=== PATIENT | male | born 1955 | race Caucasian/White ===

== ENCOUNTER 2024-06-26 14:45 | Inpatient (IN) | payer MEDICARE ==
[~2024-06-26] VITALS: Ht 190.5 cm; Wt 104.5 kg
[2024-06-26 20:00] VITALS: BP 135/80; PULSE 64; RESP 20; TEMP 97.5; O2SAT 99
[2024-06-26] MEDS ORDERED: AMLODIPINE BESY10 MG PO (20:00)
[2024-06-26] MEDS ORDERED: DIOVAN160 MG PO (20:00)
[2024-06-26] MEDS ORDERED: ATORVASTATIN CA10 MG PO (20:00)
[2024-06-26] MEDS ORDERED: ACETAMINOPHEN 325 MG TAB PO PRN (20:15)
[2024-06-26 20:59] LABS: BASOPHILS # (AUTO) 0.1 (0.0-0.1); BASOPHILS % 0.7 % (0.0-1.0); EOSINOPHILS # (AUTO) 0.2 (0.0-0.4); EOSINOPHILS % 1.8 % (0.0-6.0); HEMATOCRIT 39.8 % (38.2-49.6); HEMOGLOBIN 13.7 g/dL (14.0-18.0); LYMPHOCYTES % 36.6 % (18.0-39.1); MEAN CORPUSCULAR HEMOGLOBIN 30.4 pg (28-32); MEAN CORPUSCULAR HGB CONC 34.4 g/dL (31-35); MEAN CORPUSCULAR VOLUME 88.2 fL (81-99); MONOCYTES # (AUTO) 0.7 (0.2-0.8); MONOCYTES % 8.3 % (4.4-11.3); NEUTROPHILS # (AUTO) 4.3 (2.1-6.9); NEUTROPHILS % 52.2 % (38.7-80.0); PLATELET COUNT 192 x10e3/uL (140-360); RED BLOOD COUNT 4.51 x10e6/uL (4.3-5.7); RED CELL DISTRIBUTION WIDTH 12.1 % (11.7-14.4); WHITE BLOOD COUNT 8.15 x10e3/uL (4.8-10.8)
[2024-06-26 21:00] VITALS: BP 135/80; PULSE 64; RESP 20; TEMP 97.5; O2SAT 99
[2024-06-26 21:18] LABS: ALBUMIN 3.9 g/dL (3.5-5.0); ALBUMIN/GLOBULIN RATIO 1.3 (0.8-2.0); ANION GAP 13.9 mmol/L (8-16); BILIRUBIN,TOTAL 0.5 mg/dL (0.2-1.2); CALCIUM 9.5 mg/dL (8.4-10.2); CREATININE, SERUM 1.12 mg/dL (0.72-1.25); POTASSIUM 3.9 mmol/L (3.5-5.1)
[2024-06-26] MEDS: ATORVASTATIN 10 MG TAB PO SCH (21:34)
[2024-06-26] MEDS: AMLODIPINE BESYLATE 10 MG TAB PO SCH (21:46)
[2024-06-26] MEDS: VALSARTAN 160 MG TAB PO SCH (21:47)
[2024-06-26] MEDS: CEFTRIAXONE 2 GM in SODIUM CHLORIDE 0.9% 100 ML IV SCH (21:47)
[2024-06-26] MEDS: SODIUM CHLORIDE 0.9% 250ML 250 ML ONE (21:53)
[2024-06-26] MEDS: Vancomycin IV 1 GM in SODIUM CHLORIDE 0.9% 250ML 250 ML IV SCH (23:08)
[2024-06-26 23:37] VITALS: BP 144/86; PULSE 69; RESP 18; TEMP 97.6; O2SAT 99
[2024-06-27] VITALS (7 sets, daily range): BP systolic 142–150; BP diastolic 78–92; PULSE 67–75; RESP 18; TEMP 97.5–98.4; O2SAT 97–100
[2024-06-27] MEDS ORDERED: ASPIRIN81 MG PO (00:20)
[2024-06-27] MEDS ORDERED: SODIUM CHLORIDE 0.9% 100 ML ONE (07:57)
[2024-06-27] MEDS: MUPIROCIN 2% OINT 22 GM TUBE TOP SCH (17:00)
[2024-06-27] MEDS: ASPIRIN 81 MG CHEW TAB PO SCH (20:08)
[2024-06-27] MEDS: INSULIN LISPRO 100 UNIT/1 ML 3ML VIAL SQ SCH (20:44)
[2024-06-28] VITALS (8 sets, daily range): BP systolic 128–155; BP diastolic 81–86; PULSE 68–76; RESP 17–20; TEMP 97.7–98.5; O2SAT 96–99
[2024-06-28] MEDS: MUPIROCIN 2% OINT 22 GM TUBE TOP SCH (21:51)
[2024-06-29] VITALS (8 sets, daily range): BP systolic 142–151; BP diastolic 76–85; PULSE 69–82; RESP 17–20; TEMP 97.4–98.4; O2SAT 95–100
[2024-06-29] MEDS: MUPIROCIN 2% OINT 22 GM TUBE TOP SCH (21:55)
[2024-06-30] VITALS (8 sets, daily range): BP systolic 119–150; BP diastolic 73–85; PULSE 74–89; RESP 18–20; TEMP 97.6–98.8; O2SAT 97–100
[2024-06-30] MEDS ORDERED: MUPIROCIN 2% OINT 22 GM TUBE TOP SCH (09:00)
[2024-07-01] VITALS: BP 119/90; PULSE 75; RESP 18; TEMP 97.7; O2SAT 97
[2024-07-01 05:41] VITALS: BP 129/76; PULSE 75; RESP 18; TEMP 97.7; O2SAT 97
[2024-07-01 07:06] LABS: BASOPHILS # (AUTO) 0.1 (0.0-0.1); EOSINOPHILS # (AUTO) 0.2 (0.0-0.4); EOSINOPHILS % 3.3 % (0.0-6.0); HEMATOCRIT 44.3 % (38.2-49.6); HEMOGLOBIN 14.7 g/dL (14.0-18.0); LYMPHOCYTES % 27.6 % (18.0-39.1); MEAN CORPUSCULAR HEMOGLOBIN 29.9 pg (28-32); MEAN CORPUSCULAR HGB CONC 33.2 g/dL (31-35); MEAN CORPUSCULAR VOLUME 90.2 fL (81-99); MONOCYTES # (AUTO) 0.7 (0.2-0.8); MONOCYTES % 9.6 % (4.4-11.3); NEUTROPHILS # (AUTO) 4.1 (2.1-6.9); NEUTROPHILS % 58.2 % (38.7-80.0); PLATELET COUNT 194 x10e3/uL (140-360); RED BLOOD COUNT 4.91 x10e6/uL (4.3-5.7); WHITE BLOOD COUNT 7.07 x10e3/uL (4.8-10.8)
[2024-07-01 07:32] LABS: ANION GAP 14.9 mmol/L (8-16); CALCIUM 9.5 mg/dL (8.4-10.2); POTASSIUM 3.9 mmol/L (3.5-5.1)
[2024-07-01 08:13] VITALS: BP 153/86; PULSE 79; RESP 19; TEMP 98.1; O2SAT 99
[2024-07-01 09:38] VITALS: BP 153/86; PULSE 79; RESP 19; TEMP 98.1; O2SAT 99
== END 2024-07-01 11:00 | disposition home or self-care (01) | DRG 638 ==
LOC: MED/SURG2 14:45
PROVIDERS: ADMIT Family Medicine; ATTEND Family Medicine
PROC: 02HV33Z Insertion of Infusion Device into Superior Vena Cava, Percutaneous Approach (ICD-10-PCS; principal; 2024-06-28)
DX: E11.621 Type 2 diabetes mellitus with foot ulcer (principal); L97.516 Non-pressure chronic ulcer of other part of right foot with bone involvement without evidence of necrosis; M86.171 Other acute osteomyelitis, right ankle and foot; E11.69 Type 2 diabetes mellitus with other specified complication; E11.51 Type 2 diabetes mellitus with diabetic peripheral angiopathy without gangrene; L03.031 Cellulitis of right toe; I10 Essential (primary) hypertension; E78.5 Hyperlipidemia, unspecified; M20.41 Other hammer toe(s) (acquired), right foot; M20.42 Other hammer toe(s) (acquired), left foot; Z79.84 Long term (current) use of oral hypoglycemic drugs; Z85.46 Personal history of malignant neoplasm of prostate; Z85.820 Personal history of malignant melanoma of skin; Z90.79 Acquired absence of other genital organ(s)
CPT/HCPCS: 36415; 36569; 71045; 80048; 80053; 80202; 82948; 83036; 85025; 85651; 86140; 99252; J0696; J7050